=== PATIENT | male | born 1990 | race Caucasian/White ===

== ENCOUNTER 2021-03-16 17:01 | Emergency (ER) | payer MEDICAID ==
[~2021-03-16] VITALS: Ht 185.4 cm; Wt 77.3 kg
[2021-03-16 18:12] VITALS: BP 129/79
[2021-03-16] MEDS ORDERED: ERYT1OIN6 EACHEYE (18:19)
[2021-03-16] MEDS ORDERED: erythromycin ophthalmic ointment 1gm tube LEFTEYE ONE (18:20)
== END 2021-03-16 19:31 | disposition home or self-care (01) ==
LOC: ER 17:02
DX: H10.9 Unspecified conjunctivitis (principal)
CPT/HCPCS: 99283